=== PATIENT | male | born 1950 | race Two or more races ===

== ENCOUNTER 2024-10-09 10:42 | Inpatient (IN) | payer OTHER, MEDICAID, MEDICARE, SELFPAY ==
[2024-10-09] VITALS (10 sets, daily range): BP systolic 145–191; BP diastolic 90–126; PULSE 82–121; RESP 15–98; TEMP 36.4–36.9; O2SAT 97–99; BMI 27.4
--- NOTE | 2024-10-09 10:54 | XR_ITS ---
Examination: PA lateral chest 2 views TECHNIQUE: Upright PA lateral chest 2 views Exam date and time: October 09, 2024 1118 hours INDICATIONS: Swollen painful throat beginning 3 days ago. FINDINGS: Lobulation right hemidiaphragm Normal heart size No pneumonia or pulmonary edema IMPRESSION: No pneumonia or pulmonary edema
--- NOTE | 2024-10-09 10:54 | EKG_ITS ---
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: : [id number] Requested By: Darrian Castillo (SHIRLEY) Order Number: [id number] Reading MD: Darrian Castillo (ACCOUNT ADJUSTER) Measurements Intervals [place] Rate: 116 P: NH: QRS: 16 QRSD: 90 T: 154 QT: 312 QTc: 435 Interpretive Statements ATRIAL FLUTTER/TACHYCARDIA WITH RAPID VENTRICULAR RESPONSE ST DEVIATION AND MODERATE T-WAVE ABNORMALITY, CONSIDER LATERAL ISCHEMIA [-0.1+ mV T-WAVE IN I/aVL/V5/V6] ST DEVIATION AND MODERATE T-WAVE ABNORMALITY, CONSIDER INFERIOR ISCHEMIA [-0.1+ mV T-WAVE IN II/aVF] Compared to ECG 01/28/2022 16:18:55 Sinus bradycardia no longer present T-wave abnormality still present Possible ischemia still present /store/S0/[id number]/ecg/[id number].pdf
--- NOTE | 2024-10-09 10:56 | PD.EDRME ---
Rapid Medical Screening Exam RME Arrival date/time: 10/09/24 10:42 74-year-old male presents to the emergency department today with complaints of difficulty swallowing patient also noted to be hypertensive Chief Complaint: Dental/Oral/Throat
[2024-10-09 11:16] LABS: Basophils % (Auto) 1 % (0-2.5); Eosinophils % (Auto) 1 % (0-10); Hematocrit 33.8 % (41.0-53.0); Hemoglobin 10.7 g/dL (13.5-16.0); Immature Granulocytes % (Auto) 0 % (0-0); Immature Granulocytes Auto 0.02 Thou/mm3 (0.00-0.00); Lymphocytes # (Auto) 0.7 Thou/mm3 (1.0-4.8); Lymphocytes % (Auto) 10 % (10-50); Mean Corpuscular HGB Conc 31.7 g/dl (31.0-37.0); Mean Corpuscular Hemoglobin 23.1 pg (25.0-35.0); Mean Corpuscular Volume 73 fL (80-100); Monocytes # (Auto) 0.3 Thou/mm3 (0.0-0.8); Monocytes % (Auto) 4 % (0-12); Neutrophils # (Auto) 5.6 Thou/mm3 (1.8-7.7); Neutrophils % (Auto) 84 % (37-80); Nucleated Red Blood Cell % 0 /100 WBC (0); Platelet Count 235 Thou/mm3 (140-440); RDW Standard Deviation 41.2 fL (35.1-43.9); Red Blood Count 4.63 Miln/mm3 (4.50-5.90); White Blood Count 6.7 Thou/mm3 (3.8-10.6)
[2024-10-09 11:33] LABS: B-Type Natriuretic Peptide 157 pg/mL (0-100)
[2024-10-09 11:35] LABS: Alanine Aminotransferase 9 U/L (10-49); Albumin, Serum 4.8 gm/dL (3.4-4.8); Albumin/Globulin Ratio 1.8 (1.2-2.2); Alkaline Phosphatase 62 U/L (46-116); Anion Gap 9 (7-16); Aspartate Amino Transferase 28 U/L (0-34); BUN/Creatinine Ratio 11 Ratio (12-20); Bilirubin,Total 0.7 mg/dL (0.3-1.2); Blood Urea Nitrogen 16 mg/dL (9-23); Calcium 9.4 mg/dL (8.3-10.6); Calcium (Corrected) 9.4 mg/dL (8.5-10.1); Carbon Dioxide 23.5 mMol/L (20.0-31.0); Chloride 105 mMol/L (98-107); Creatinine (Component) 1.5 mg/dL (0.6-1.3); Globulin 2.6 gm/dL (2.3-3.5); Glucose 100 mg/dL (74-106); Osmolality,Calculated 275 (275-295); Potassium 3.8 mMol/L (3.4-5.1); Sodium 137 mMol/L (136-145); Total Protein 7.4 gm/dL (5.7-8.2); Troponin I 0.029 ng/mL (0.0-0.045); eGFR 48 See Note
[2024-10-09 11:44] LABS: INR 1.2 (0.9-1.3); Partial Thromboplastin Time 29.6 Seconds (22.0-36.0); Prothrombin Time 12.8 Seconds (9.0-12.2)
--- NOTE | 2024-10-09 13:59 | XR_ITS ---
Examination: CT chest with intravenous contrast 2-D sagittal and coronal reconstructions Exam date and time: October 09, 2024 1518 hours INDICATIONS: Difficulty swallowing 4 days CTDI:vol (mGy) 24.2 DLP: (mGycm) 984 Technique: Multiple axial sections of the thorax have been obtained. Sections have been obtained, 3 mm slice thickness. Mediastinal and lung density settings have been obtained. Intravenous contrast administered, 30 cc Isovue-300. 2-D sagittal, coronal images obtained. Low dose protocols were performed. One or more of the following dose reduction techniques were used; automated exposure control, adjustment of the mA and/or KV according to patient size, use of iterative reconstruction technique. Findings: Thoracic aorta aneurysm dilatation Pulmonary artery segments are not enlarged Moderate calcification left anterior descending coronary artery Mild enlargement left atrium left ventricle No paratracheal tracheobronchial or bronchopulmonary adenopathy No pneumonia or pulmonary edema pleural disease or pulmonary nodules Lower wall of the esophagus appears mildly thickened Cholelithiasis No visualized liver or splenic lesion No pancreatic mass Significant scarring both kidneys Moderate degenerative disc disease thoracic spine IMPRESSION: No mediastinal lymphadenopathy No pneumonia, pulmonary edema, pleural disease or pulmonary nodules Lower wall of the esophagus appears mildly thickened, consider reflux esophagitis Suggest elective standard fluoroscopically guided esophagram follow-up
--- NOTE | 2024-10-09 13:59 | XR_ITS ---
Examination: CT soft tissue neck, with intravenous contrast. 2-D coronal reconstructions. 2-D sagittal reconstructions. Date and time of exam :October 09, 2024 1518 hours INDICATIONS: Unable to swallow fluid beginning 4 days ago. CTDI: vol (mGy):14 DLP: (mGycm):388 Technique: 1.25 mm axial sections of the neck of the obtained. Coronal and sagittal reconstructions have been obtained. Intravenous contrast administered 60 30 cc Isovue-300 cc Isovue-370. Low dose protocols were performed. One or more of the following dose reduction techniques were used; automated exposure control, adjustment of the mA and/or KV according to patient size, use of iterative reconstruction technique. Findings: Symmetrical nasopharynx oropharynx Nonspecific carotid triangle submental cervical lymphadenopathy The larynx appears normal 4 mm right thyroid nodule Normal epiglottis Upper thoracic esophagus shows mild wall thickening IMPRESSION: No soft tissue neck mass The upper thoracic esophagus shows mild wall thickening Consider elective standard fluoroscopically guided esophagram follow-up
--- NOTE | 2024-10-09 14:03 | PD.EDADULT ---
ED General RME/HPI General Chief complaint: Dental/Oral/Throat Stated complaint: SWOLLEN THROAT X3 DAYS Time Seen by Provider: 10/09/24 16:13 Arrival date/time: 10/09/24 10:42 CC: Inability to swallow food and fluids HPI 4 days. Patient states insidious onset no prior history of similar events patient denies fever chills chest pain shortness of breath or difficulty breathing. Patient is a former alcoholic has a history of hypertension hyperlipidemia and is on Plavix. RME / HPI RME / HPI narrative: 10/09/24 10:42 74-year-old male presents to the emergency department today with complaints of difficulty swallowing patient also noted to be hypertensive Related Data Home Medications ?Medication ?Instructions ?Recorded ?Confirmed clopidogrel 75 mg tablet (Plavix) 75 mg PO QDAY #0 tabs 07/19/13 08/16/18 metformin 500 mg tablet 500 mg PO BIDAC #0 tabs 07/19/13 08/16/18 (Glucophage) simvastatin 40 mg tablet (Zocor) 40 mg PO HS #0 tabs 07/19/13 08/16/18 Atenolol/Chlorthalidone * 1 tab PO QAM #0 tabs 07/18/15 08/16/18 (TENORETIC 50/25 *) baclofen 10 mg tablet 1 - 2 tab PO TID #0 tabs 07/18/15 08/16/18 lisinopril 40 mg tablet 40 ml PO QDAY #0 tabs 07/18/15 08/16/18 loratadine 10 mg tablet (Claritin) 10 mg PO QDAY #0 tabs 07/18/15 08/16/18 pantoprazole 40 mg tablet,delayed 40 mg PO QDAY ##0 07/23/15 08/16/18 release (Protonix) Allergies Allergy/AdvReac Type Severity Reaction Status Date / Time No Known Allergies Allergy Verified 10/09/24 10:45 Review of Systems Review of Systems Narrative Review of Systems: GEN: No fever, no chills, no weight loss EYES: No discharge, no visual changes, no pain HEENT: No ear pain, no congestion, no sore throat PULM: No shortness of breath, no cough, no congestion CV: No chest pain, no dyspnea on exertion, no palpitations GI: No nausea, no vomiting, no diarrhea, no pain, no constipation : No frequency, no urgency, no dysuria MUSC/SKEL: No joint pain, no back pain SKIN: No rash PSYCH: No hallucinations, no depression HEME/LYMPH: No easy bleeding or bruising tendencies NEURO: No weakness, no headache Past Medical History Past Medical History CARDIAC: Positive Myocardial Infarction, Hypercholesterolemia and Hypertension; Negative Congestive Heart Failure RESPIRATORY: Negative Chronic Obstructive Pulmonary Disease (COPD) GENITOURINARY: Negative Renal Disease ENDOCRINE: Positive Diabetes Mellitus Type 2; Negative Diabetes Mellitus Type 1 OTHER HISTORY: Negative Blood Transfusions Surgical History SURGICAL: Positive Coronary Stent Social History SMOKING STATUS: Never smoker ED Exam Narrative Physical exam: [General: In mild discomfort but not in any acute distress Head normocephalic HEENT: Eyes pupils are PERRLA EOMs are intact mouth pink dry membranes uvula is midline swallow symmetrical phonation is normal. Patient is observed unable to swallow his own saliva. All other subsystems of HEENT are within acceptable limits Neck is supple nontender Chest equal chest rise nontender to palpation Respiratory: Clear to auscultation no wheezes crackles or rubs CV: Rate rhythm is regular no murmurs rubs or clicks Abdomen is flat, soft nontender no masses positive bowel sounds all 4 quadrants Back: No CVA tenderness no spinous process tenderness from cervical spine thoracic and lumbar spine Skin: Intact no petechiae rash induration ulceration or crepitus Extremities: Moving all extremity against resistance cap refill less than 2 seconds neurosensory intact Neuro: Awake alert oriented x3 Glascow coma 15 no focal deficits] Course Course Course Narrative: CT neck and chest show that there is esophageal wall thickening in the distal portion but no masses no lymphadenopathy no other acute finding as interpreted by me read by radiology on both CTs. Patient's case discussed with Dr. Rahman, who agrees to consult on this patient for endoscopy tomorrow. Patient is in agreement with this plan. Patient's case discussed with the resident for Dr. Khoury, who agrees to accept the patient for admission. Quality Measures none Orders Category Date Time Status CT Screening NOW Care 10/09/24 14:00 Active EKG (ED ONLY) *Do not use* NOW Care 10/09/24 10:54 Completed Saline [Insert IV] NOW Care 10/09/24 13:59 Active Consult to Gastroenterology Stat Cons 10/09/24 16:[address] chest w con Stat Exams 10/09/24 13:[address] soft tissue neck w con Stat Exams 10/09/24 13:59 Completed EKG (ED Only) Stat Exams 10/09/24 10:54 Draft XR chest 2V Stat Exams 10/09/24 10:54 Completed B-Type Natriuretic Peptide Stat Lab 10/09/24 11:02 Completed CBC Stat Lab 10/09/24 11:02 Completed Comprehensive Metabolic Panel Stat Lab 10/09/24 11:02 Completed Partial Thromboplastin Time Stat Lab 10/09/24 11:02 Completed Prothrombin Time with INR Stat Lab 10/09/24 11:02 Completed Troponin I Stat Lab 10/09/24 11:02 Completed Sodium Chloride 0.9% 1000 ml [Ns] 1,000 ml Med 10/09/24 13:59 Active IV 125 mls/hr cloNIDine HCL [Catapres] Med 10/09/24 10:55 Discontinued 0.2 mg PO X1 ONE hydrALAZINE INJ [Apresoline Inj] Med 10/09/24 14:01 Discontinued 20 mg IV X1 ONE Vital Signs Vital signs: Vital Signs Temperature 98.4 F 10/09/24 10:52 Pulse Rate 118 H 10/09/24 10:52 Respiratory Rate 18 10/09/24 10:52 Blood Pressure 191/126 H 10/09/24 10:52 Pulse Oximetry (%) 97 10/09/24 10:52 Oxygen Delivery Method Room Air 10/09/24 10:52 Discharge Plan Plan Patient Disposition: Other Care w/in Hosp ([facility]) Prescriptions/Referrals Prescriptions/Med Rec: No Action metformin [Glucophage] 500 MG tablet 500 mg PO BIDAC Qty: 0 clopidogrel [Plavix] 75 MG tablet 75 mg PO QDAY Qty: 0 simvastatin [Zocor] 40 MG tablet 40 mg PO HS Qty: 0 Atenolol/Chlorthalidone * (TENORETIC 50/25 *) 1 TAB tablet 1 tab PO QAM Qty: 0 baclofen 10 MG tablet 1 - 2 tab PO TID Qty: 0 lisinopril 40 MG tablet 40 ml PO QDAY Qty: 0 loratadine [Claritin] 10 MG tablet 10 mg PO QDAY Qty: 0 pantoprazole [Protonix] 40 MG tablet,delayed release (DR/EC) 40 mg PO QDAY Qty: 0 Patient Comments: TO SUPPRESS GASTRIC SECRETIONS Referrals: Darrian Cortez PA-C [Primary Care Provider] - In 1 week Problem List Clinical Impression: Esophageal obstruction, Hypertension Patient/Caregiver Discharge Instructions Print Language: Kenyan Stand Alone Forms: Kenisha Award Info., Patient Portal Info Letter PA/POLITICAL RESEARCH SCIENTIST Supervising Physician PA/SANTIAGO Supervising Physician: Rafal Cooper ENP MDM EKG Interpretation EKG #1: EKG Interpretation: EKG performed at 1109 shows a ventricular rate of 116 QRS of 90 QTc of 381 this is a flutter. Labs Lab(s) Interpretation(s): CBC shows no leukocytosis patient has a mild anemia hemoglobin of 10.7 and a crit of 33.8 this is an improvement when compared with other laboratory values. Platelets of 235 Coags show PT of 12.8 INR PTT within acceptable limits CMP shows a BUN of 16 creatinine 1.5 no other electrolyte imbalances. No transaminitis or T. bili elevation Troponin at 0.029 BNP at 157 Imaging Imaging Interpretation(s): CT chest and neck show the patient has distal esophageal wall thickening, there is no mediastinal masses or masses around esophagus. This is interpreted by me read by radiology. Medication Administration(s) Medication Administration History Sodium Chloride (Ns) 1,000 mls @ 125 mls/hr IV .Q8H SHAYNA Stop: 11/08/24 13:58 Last Admin: 10/09/24 14:22 Dose: 125 mls/hr Documented By: TRINIDAD Discontinued Medications Clonidine (Clonidine Hcl 0.1 Mg Tablet) 0.2 mg PO X1 ONE Stop: 10/09/24 10:56 Last Admin: 10/09/24 11:06 Dose: Not Given Documented By: DO Non-Admin Reason: Other, see note Comments: pt unable to swallow Hydralazine HCl (Hydralazine Inj 20 Mg/Ml Vial) 20 mg IV X1 ONE Stop: 10/09/24 14:02 Last Admin: 10/09/24 14:22 Dose: 20 mg Documented By: TRINIDAD
[2024-10-09] MEDS: hydrALAZINE INJ 20 MG/ML VIAL IV (14:22)
[2024-10-09] MEDS: SODIUM CHLORIDE 0.9% 1000 ML 1,000 ML 125 ML IV (14:22)
--- NOTE | 2024-10-09 17:29 | PD.RESHP ---
Documentation for date of: 10/09/24 HPI History of Present Illness Chief complaint: Dysphagia History of present illness: HPI: Patient is Nepalese-speaking and history facilitated by registered healthcare movie producer. His daughter was present at bedside Patient is a 74-year-old male with past medical history significant for primary hypertension, previous [place], CAD s/p 1 stent 15 years ago, [id number] diabetes mellitus type 2, GERD and esophageal ulcers presented today with a history of progressively worsening dysphagia. Follows up with his PCP and executive secretary social welfare Dr. Luis Murphy. Patient stated that for the past 4 days he has experienced dysphagia and odynophagia. Initially his dysphagia was to solids but this progressively worsened to include liquids. For the past 24 hours patient has not been able to swallow anything at all. He also endorses regurgitation of food after trying to swallow it. It is also painful for him to swallow saliva. He was unable to swallow his medication for the past 2 days. Denies any fever, abdominal pain, nausea, headache, blurry vision, presyncope/syncope, chest pain/palpitations, diarrhea, dysuria, recent travel and sick contacts. Of note according to patient's daughter, for the past 7 months he has had difficulty swallowing. There were instances when he was swallow food and it would get stuck and he would have to cough it out. In 2023 patient had 2 EGDs done, one in [place] and one in [place]. The results of these were not seen, but reported by the patient that he had esophageal ulcers and GERD. Incidentally the patient's mother after choking on a piece of food. ED course: BP 191/127, pulse 118, temp 98.4 F, SpO2 97% on room air. Lab significant for Hb 10.7, BUN 16, CR 1.5, BNP 157, K 3.8. CT chest significant for lower wall of esophagus mildly thickened. CT soft tissue neck significant for 4 mm right thyroid nodule In the ED patient received Hydralazine 20 Mg IV x 1. Patient will be admitted for workup and management of dysphagia for investigation and hypertensive urgency. GI, Dr. Rahman consulted and closely following the case. Review of Systems Review of Systems Narrative Review of Systems: GENERAL: Denies fever/chills or diaphoresis. HEENT: Denies headaches or visual changes. Denies discharge. Neuro: Denies unusual weakness or difficulty speaking. CARDIO: Denies chest pain or palpitations. PULM: Denies SOB, coughing or wheezing. GI: As above. URO: Denies burning/itching/pain/urinary changes. MSK/EXT/SKIN: Denies joint/skeletal/muscle pain, issues/changes in upper or lower extremities, itchiness, or superficial pain. PSYCH: Cooperative, pleasant mood & affect. The rest of the review of systems is otherwise negative. Past Medical History Past Medical History Comments PMH COMMENT: Past medical history: [place] Primary hypertension GERD Esophageal ulcers CAD s/p stent [address] [facility] Ynx-jowdqag-gwelswjbe diabetes mellitus type 2 Medication list: Glipizide 5 Mg p.o. daily Plavix 75 Mg p.o. daily Simvastatin 40 Mg p.o. at bedtime Lisinopril 20 Mg p.o. daily Past surgical history: Right inguinal hernia repair Allergies: NKFDA Social history: Occupational History: Retired. 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 Has 3 daughters Tobacco use: 3-4 cigarettes/day. Approximately 1 pack care ETHO use: Previously a heavy drinker. Will drink hard liquor and beers daily. Quit 2-3 years ago Illicit drug use: Denies Social History Note: Lives alone. Carries out all ADLs independently. Walks 20 minutes/day and very active with gardening on Family History: Familial hypertriglyceridemia Diabetes Hypertension Swallowing disorder?mother His brother suddenly in his sleep Exam Vital Signs Temp Pulse Resp BP Pulse Ox O2 Del Method 97.6 F 82 20 149/92 H 99 Room Air 10/09/24 13:50 10/09/24 14:45 10/09/24 14:45 10/09/24 14:45 10/09/24 14:45 10/09/24 14:45 Narrative Exam Constitutional Alert, oriented x 3 and comfortable. Elderly male HEENT Vision grossly intact. Patent nares. Trachea midline Respiratory Chest normal on inspection and clear auscultation bilaterally Cardiovascular S1 and S2 audible, RRR. No murmurs carotid bruit. No gross JVD. Abdominal Soft and non tender to palpation in all quadrants. BS + Genitourinary No bladder tenderness, no flank pain. Normal to palpation Musculoskeletal Extremities tone within normal limits. No LE edema. Neurological CN II - XII grossly intact. Extremity motor and sensation grossly intact. Skin Warm, dry and intact. No apparent lesions. Psychiatric Patient has good affect, is cooperative Results: Labs 10/10/24 04:50 10/10/24 04:50 Labs: Short CBC 10/09/24 Range/Units 11:02 WBC 6.7 (3.8-10.6) Thou/mm3 Hgb 10.7 L (13.5-16.0) g/dL Hct 33.8 L (41.0-53.0) % Plt Count 235 (140-440) Thou/mm3 BMP 10/09/24 11:02 Sodium 137 Potassium 3.8 Chloride 105 Carbon Dioxide 23.5 BUN 16 Creatinine 1.5 H Glucose 100 Calcium 9.4 Cardiac Enzymes 10/09/24 Range/Units 11:02 Troponin I 0.029 (0.0-0.045) ng/mL Liver Function 10/09/24 Range/Units 11:02 Total Bilirubin 0.7 (0.3-1.2) mg/dL AST 28 (0-34) U/L ALT 9 L (10-49) U/L Alkaline Phosphatase 62 (46-116) U/L Albumin 4.8 (3.4-4.8) gm/dL Quality Measures Quality Measures none Advance care planning discussed with:: patient Medications Home Medications and Allergies Home Medications ?Medication ?Instructions ?Recorded ?Confirmed ?Type clopidogrel 75 mg tablet (Plavix) 75 mg PO QDAY #0 tabs 07/19/13 10/10/24 History metformin 500 mg tablet 500 mg PO BIDAC #0 tabs 07/19/13 08/16/18 History (Glucophage) simvastatin 40 mg tablet (Zocor) 40 mg PO HS #0 tabs 07/19/13 10/10/24 History Atenolol/Chlorthalidone * 1 tab PO QAM #0 tabs 07/18/15 08/16/18 History (TENORETIC *) baclofen 10 mg tablet 1 - 2 tab PO TID #0 tabs 07/18/15 08/16/18 History lisinopril 40 mg tablet 40 ml PO QDAY #0 tabs 07/18/15 08/16/18 History loratadine 10 mg tablet (Claritin) 10 mg PO QDAY #0 tabs 07/18/15 08/16/18 History pantoprazole 40 mg tablet,delayed 40 mg PO QDAY ##0 07/23/15 08/16/18 History release (Protonix) glipizide 5 mg tablet 5 mg PO BID 10/10/24 10/10/24 History lisinopril 20 mg tablet 20 mg PO QDAY 10/10/24 10/10/24 History Allergies Allergy/AdvReac Type Severity Reaction Status Date / Time No Known Allergies Allergy Verified 10/09/24 10:45 Visit Medications Sodium Chloride (Ns) 1,000 mls @ 125 mls/hr IV .Q8H SHAYNA Stop: 11/08/24 13:58 Last Admin: 10/09/24 14:22 Dose: 125 mls/hr Discontinued Medications Clonidine (Clonidine Hcl 0.1 Mg Tablet) 0.2 mg PO X1 ONE Stop: 10/09/24 10:56 Last Admin: 10/09/24 11:06 Dose: Not Given Hydralazine HCl (Hydralazine Inj 20 Mg/Ml Vial) 20 mg IV X1 ONE Stop: 10/09/24 14:02 Last Admin: 10/09/24 14:22 Dose: 20 mg Assessment & Plan Plan Patient is Nepalese-speaking and history facilitated by registered healthcare movie producer. His daughter was present at bedside Patient is a 74-year-old male with past medical history significant for primary hypertension, previous [place], CAD s/p 1 stent 15 years ago, [id number]-[id number] diabetes mellitus type 2, GERD and esophageal ulcers presented today with a history of progressively worsening dysphagia. Follows up with his PCP and executive secretary social welfare Dr. Luis Murphy. Patient will be admitted for workup and management of dysphagia for investigation and hypertensive urgency. Hypertensive urgency Primary hypertension On admission BP 191/127. Denies any headaches, visual changes, syncope or presyncope. In the ED patient received hydralazine 20 Mg IV x 1 after BP to 145/90. Plan: ? HbA1c, lipid panel, TSH ? Aim to lower blood pressure by 25% within first 24 hours ? Labetalol 5 Mg IV every 10 minutes for greater than 180 Dysphagia Odynophagia Esophageal ulcers GERD DDx: Esophageal stricture, achalasia, esophageal spasm, scleroderma, esophageal webs, Lorena-Ksihor syndrome Patient has a history of progressively worsening dysphagia over the past few months. Acutely worsened over the past 4 days. He has had multiple endoscopies last year which were positive for esophageal ulcers and GERD. CT chest significant for lower wall of esophagus mildly thickened. CT soft tissue neck significant for 4 mm right thyroid nodule Plan: ? Clear liquid diet ? ESR, CRP ? N.p.o. from midnight ? Benzocaine spray for odynophagia as needed ? Pantoprazole 40 Mg IV twice daily ? GI, Dr. Rahman consulted. Appreciate recommendations Atrial flutter Patient denies any chest pain/pressure or palpitations EKG on admission significant for atrial flutter, rate 116. No acute ST changes. T wave inversion in lateral leads Previous EKG showed no signs of a.flutter [id number] 5 points; 7.2% stroke risk per year. [Age, male, HTN, [place], DM] Plan: ? Maintain K greater than 4 and magnesium greater than 2 at all times to prevent any further arrhythmias. ? To consider rate control if sustains over 100 ? To discuss with patient risks versus benefits of anticoagulation prior to discharge Acute kidney injury, prerenal versus renal DDx: Dehydration, medication side effect, ATN On admission patient's CR 1.5. From chart review baseline CR between 1.1?1.2. Plan: ? Gentle IV hydration with normal saline IVF at 80 cc/h Microcytic anemia On admission Hb 10.7 DDx:, Thalassemia, anemia of chronic disease, sideroblastic anemia aortic stenosis, lead poisoning, nutritional deficiency Plan: ? Iron panel ordered ? B12, folate, LDH, reticulocyte count ordered Thyroid nodule 4 mm incidentally found on CT soft tissue neck Plan: ? TSH and free T4 ordered ? For outpatient follow-up Health maintenance: Disposition: Pending EGD. IV fluids. Diet: Clear liquid. N.p.o. from midnight Lines: pIVs GI Prophylaxis: Pantoprazole 40 Mg IV twice daily Thrombo Prophylaxis: Heparin Code status: FULL CODE Plan of care discussed with Attending Dr. Iraida Kelley MD PGY 1 Disclaimer: This note was dictated by speech recognition. Minor errors in tile picker may be present due to voice recognition software. Attending Provider Attestation/Addendum I attest that I was physically present for the evaluation, physical examination, lab and imaging review of the patient with the residents. I discussed the case with the residents and agree with the findings and plans of care as documented above. Patient is 74 years old male with past medical history of hypertension, CAD status post stent, diabetes, GERD and esophageal ulcers who presented to the ED with complaint of worsening dysphagia. Patient has been having dysphagia for last 7 months, underwent EGDs but is unsure of the results. But for the last 4 days, his dysphagia has worsened significantly along with odynophagia. His dysphagia was initiated to solids but has progressed to liquids and has not been able to swallow anything at all. In the ED, his blood pressure was 191/127, pulse 118. Rest of the vitals were within normal limits. Lab results show hemoglobin of 10.7, creatinine 1.5. CT chest was obtained which showed lower wall of esophagus mildly thickened, CT soft tissue neck showed 4 mm right thyroid nodule. We will admit the patient for management of dysphagia, odynophagia and hypertensive urgency. We will keep him n.p.o. after midnight and obtain GI consult. Benzocaine spray and analgesics for pain control. Labetalol as needed for hypertensive urgency. Patient also noted to have atrial flutter, heart rate is controlled at bedside. Patient has [id number] score of 5. Will discuss with the patient regarding starting of anticoagulation after GI procedures. Patient also has DIANA likely secondary to decreased oral intake, we will start him on gentle IV hydration. We will obtain iron panel, B12, folate for evaluation of his anemia. TSH and T4 level ordered. Kt Khoury MD
[2024-10-09] MEDS: SODIUM CHLORIDE 0.9% 1000 ML 1,000 ML 80 ML IV (18:48)
[2024-10-09] MEDS: POTASSIUM CHL 10 mEq IVPB 10 MEQ/100 ML BAG 100 MEQ IV ×2 (18:49→21:32)
[2024-10-09] MEDS: Magnesium Sulfate 2 GM Ivpb 2 GM/50 ML BAG IV (18:50)
[2024-10-09] MEDS: BENZOCAINE 20% (Hurricaine) SPRAY 1 DOSE TOP (19:02)
--- NOTE | 2024-10-09 20:38 | PD.IMCONS ---
HPI Data of Consult Requesting Physician: Kt Khoury MD Primary Care Provider: Darrian Cortez PA-C Consult Narrative Reason for consult: Dysphagia History of present illness: 74-year-old male evaluated by me at the request of the ER team for progressive dysphagia cc:: cc: Kt Khoury MD Review of Systems Review of Systems Systems Reviewed: All systems reviewed, normal except as documented Past Medical History Surgical History OTHER SURGICAL HX: Diabetes mellitus Essential hypertension Hyperlipidemia On clopidogrel Meds Home Medications and Allergies Home Medications ?Medication ?Instructions ?Recorded ?Confirmed ?Type clopidogrel 75 mg tablet (Plavix) 75 mg PO QDAY #0 tabs 07/19/13 10/10/24 History metformin 500 mg tablet 500 mg PO BIDAC #0 tabs 07/19/13 08/16/18 History (Glucophage) simvastatin 40 mg tablet (Zocor) 40 mg PO HS #0 tabs 07/19/13 10/10/24 History Atenolol/Chlorthalidone * 1 tab PO QAM #0 tabs 07/18/15 08/16/18 History (TENORETIC 50/ *) baclofen 10 mg tablet 1 - 2 tab PO TID #0 tabs 07/18/15 08/16/18 History lisinopril 40 mg tablet 40 ml PO QDAY #0 tabs 07/18/15 08/16/18 History loratadine 10 mg tablet (Claritin) 10 mg PO QDAY #0 tabs 07/18/15 08/16/18 History pantoprazole 40 mg tablet,delayed 40 mg PO QDAY ##0 07/23/15 08/16/18 History release (Protonix) glipizide 5 mg tablet 5 mg PO BID 10/10/24 10/10/24 History lisinopril 20 mg tablet 20 mg PO QDAY 10/10/24 10/10/24 History Allergies Allergy/AdvReac Type Severity Reaction Status Date / Time No Known Allergies Allergy Verified 10/09/24 10:45 Exam Vital Signs Temp Pulse Resp BP Pulse Ox O2 Del Method 97.6 F 98 16 171/102 H 99 Room Air 10/09/24 20:06 10/09/24 20:06 10/09/24 20:06 10/09/24 20:06 10/09/24 20:10/09/24 20:06 Constitutional Comments: Alert oriented Routine Respiratory Exam Comments: Normal to auscultation Routine Abdominal Exam Comments: Soft nontender Results Labs 10/10/24 04:50 10/10/24 04:50 Labs: Short CBC 10/09/24 Range/Units 11:02 WBC 6.7 (3.8-10.6) Thou/mm3 Hgb 10.7 L (13.5-16.0) g/dL Hct 33.8 L (41.0-53.0) % Plt Count 235 (140-440) Thou/mm3 BMP 10/09/24 11:02 Sodium 137 Potassium 3.8 Chloride 105 Carbon Dioxide 23.5 BUN 16 Creatinine 1.5 H Glucose 100 Calcium 9.4 Cardiac Enzymes 10/09/24 Range/Units 11:02 Troponin I 0.029 (0.0-0.045) ng/mL Liver Function 10/09/24 Range/Units 11:02 Total Bilirubin 0.7 (0.3-1.2) mg/dL AST 28 (0-34) U/L ALT 9 L (10-49) U/L Alkaline Phosphatase 62 (46-116) U/L Albumin 4.8 (3.4-4.8) gm/dL Assessment and Plan Additional Assessment & Plan Additional Plan: Progressive dysphagia Plan informed consent obtained for fiberoptic esophagogastroduodenoscopy with possible biopsy possible therapeutic intervention under intravenous moderate sedation N.p.o. midnight tonight Other medical problems include 1 essential hypertension 2 hyperlipidemia 3 diabetes mellitus type 2 Thank you very much for the opportunity to participate in care of this patient
[2024-10-09] MEDS: HEPARIN SOD INJ 5000 UNIT/ML VIAL SC (21:32)
[2024-10-09] MEDS: PANTOPRAZOLE INJ 40 MG VIAL IVP (21:32)
[2024-10-09] MEDS: MORPHINE SULF INJ 10 MG/ML VIAL 2 MG IVP (21:49)
[2024-10-10] VITALS (20 sets, daily range): BP systolic 129–208; BP diastolic 78–136; PULSE 78–131; RESP 14–98; TEMP 36.1–36.8; O2SAT 95–99
[2024-10-10] MEDS: SODIUM CHLORIDE 0.9% 1000 ML 1,000 ML 80 ML IV ×2 (06:01→21:07)
[2024-10-10 06:26] LABS: Basophils % (Auto) 0 % (0-2.5); Eosinophils % (Auto) 0 % (0-10); Hematocrit 34.8 % (41.0-53.0); Hemoglobin 10.7 g/dL (13.5-16.0); Immature Granulocytes % (Auto) 0 % (0-0); Immature Granulocytes Auto 0.02 Thou/mm3 (0.00-0.00); Immature Reticulocyte Fraction 27.3 % (2.3-13.4); Lymphocytes # (Auto) 0.7 Thou/mm3 (1.0-4.8); Lymphocytes % (Auto) 8 % (10-50); Mean Corpuscular HGB Conc 30.7 g/dl (31.0-37.0); Mean Corpuscular Hemoglobin 23.2 pg (25.0-35.0); Mean Corpuscular Volume 75 fL (80-100); Monocytes # (Auto) 0.4 Thou/mm3 (0.0-0.8); Monocytes % (Auto) 4 % (0-12); Neutrophils # (Auto) 7.9 Thou/mm3 (1.8-7.7); Neutrophils % (Auto) 87 % (37-80); Nucleated Red Blood Cell % 0 /100 WBC (0); Platelet Count 238 Thou/mm3 (140-440); RDW Standard Deviation 42.1 fL (35.1-43.9); Red Blood Count 4.62 Miln/mm3 (4.50-5.90); Reticulocyte % (Auto) 1.9 % (0.5-1.5); Reticulocyte Absolute Auto 87.3 Biln/L (25.0-75.0); Reticulocyte Hgb Content 25.4 pg (28.0-35.0); White Blood Count 9.1 Thou/mm3 (3.8-10.6)
[2024-10-10 07:23] LABS: Folate 22.77 ng/mL (>5.38); Vitamin B12 284 pg/mL (211-911)
[2024-10-10 07:26] LABS: Glucose Estimated Average 126 mg/dL (80-131)
[2024-10-10 07:31] LABS: Ferritin 11 ng/mL (10.5-307.3); Iron 30 mcg/dL (65-175); Percent Iron Saturation 8 % (20-55); Total Iron Binding Capacity 358 mcg/dL (250-425); Unsaturated Iron Binding 328 (225-295)
[2024-10-10 07:41] LABS: Alanine Aminotransferase 9 U/L (10-49); Albumin, Serum 4.4 gm/dL (3.4-4.8); Albumin/Globulin Ratio 1.8 (1.2-2.2); Alkaline Phosphatase 62 U/L (46-116); Anion Gap 13 (7-16); Aspartate Amino Transferase 27 U/L (0-34); BUN/Creatinine Ratio 14 Ratio (12-20); Bilirubin,Total 0.6 mg/dL (0.3-1.2); Blood Urea Nitrogen 19 mg/dL (9-23); C-Reactive Protein 0.6 mg/dL (0.0-0.9); Calcium 8.7 mg/dL (8.3-10.6); Calcium (Corrected) 8.7 mg/dL (8.5-10.1); Carbon Dioxide 18.8 mMol/L (20.0-31.0); Cardiac Risk Estimate 3.6 RATIO (4.0-6.7); Chloride 109 mMol/L (98-107); Cholesterol 169 mg/dL (132-200); Creatinine (Component) 1.4 mg/dL (0.6-1.3); Estimated Creatinine Clearance 40.5 mL/min (>60); Free T4 (Free Thyroxine) 1.21 ng/dL (0.89-1.76); Globulin 2.5 gm/dL (2.3-3.5); Glucose 72 mg/dL (74-106); HDL Cholesterol 47 mg/dL (40-60); LDH (Lactate Dehydrogenase) 199 U/L (120-246); LDL Cholesterol,Calculated 94 mg/dL (0-130); Magnesium 2.1 mg/dL (1.6-2.6); Osmolality,Calculated 282 (275-295); Phosphorous 3.1 mg/dL (2.4-5.1); Potassium 4.3 mMol/L (3.4-5.1); Sodium 141 mMol/L (136-145); Thyroid Stimulating Hormone 1.79 uIU/mL (0.55-4.78); Total Protein 6.9 gm/dL (5.7-8.2); Triglycerides 139 mg/dL (30-150); eGFR 52 See Note
[2024-10-10] MEDS: PANTOPRAZOLE INJ 40 MG VIAL IVP ×2 (09:14→21:25)
--- NOTE | 2024-10-10 09:25 | CHAP ---
Prayed with patient and family about upcoming procedure.
[2024-10-10 10:04] LABS: Sed Rate (ESR) 47 mm/hr (0-20)
--- NOTE | 2024-10-10 10:43 | PC.NURSE ---
Pt. requesting benzocaine for throat pain, Dr. Kelley orders no because pt. can only have one time a day and will have before procedure. Pt. aware and agrees.
[2024-10-10] MEDS: LABETALOL INJ 5 MG/ML VIAL 20 ML IVP (12:28)
--- NOTE | 2024-10-10 13:22 | PC.SS ---
Initial assessment: this is 74 year old male who lives at home alone. Patient is Slovak speaking. Patient is independent with ADL's. Patient denies DME use. PCP is Darrian Cortez. [facility]. Discharge plan is to return home. Family is able to transport the patient home. Patient's family is requesting home health services, no preferred agency. D/c home: home health Next of kin: Meagan ledesma
--- NOTE | 2024-10-10 14:43 | PC.SS ---
Rounding note: planned EGD today.
--- NOTE | 2024-10-10 16:29 | ESPR_ITS ---
<Statement entered by Ulises Larsen MD - 10/10/24 18:40> Patient was seen and examined at bedside, reported that he still has some moderate confusion. Blood pressure 143/93 report for him labetalol as needed with parameters of 160 systolic blood pressure to be given 5 mg of IV labetalol. X 3 if does not improve call MD. Patient is scheduled for EGD today by Dr. Rahman. Was still waiting for the medical records for his previous EGDs. - Patient's plan and care discussed with my attending, Dr. Ignacio Larsen MD Internal Medicine PGY-2 Documentation for date of: 10/10/24 Subjective Subjective Interval history: Patient is Guyanese-speaking and interaction facilitated by registered healthcare caul puller. Patient was seen and examined at bedside this AM. No acute exents overnight. Adequate urine output and mentation is at baseline. Patient still complains of odynophagia. Denies any vomiting, nausea or fever. FE 30, TIBC 358, ferritin 11. LDH 199, B12, folate within normal limits. Reticulocyte count 1.9. ESR 47, CRP 0.6. Patient scheduled for EGD tonight Exam Vital Signs Temp Pulse Resp BP Pulse Ox O2 Del Method 97.0 F 103 H 16 154/78 H 95 Room Air 10/10/24 12:00 10/10/24 12:28 10/10/24 12:00 10/10/24 13:08 10/10/24 12:00 10/10/24 12:00 Narrative Exam Constitutional Alert, oriented x 3 and comfortable. Elderly male HEENT Vision grossly intact. Patent nares. Trachea midline. Thyroid nodule palpated on the right Respiratory Chest normal on inspection and clear auscultation bilaterally Cardiovascular S1 and S2 audible, RRR. No murmurs carotid bruit. No gross JVD. Abdominal Soft and non tender to palpation in all quadrants. BS + Genitourinary No bladder tenderness, no flank pain. Normal to palpation Musculoskeletal Extremities tone within normal limits. No LE edema. Neurological CN II - XII grossly intact. Extremity motor and sensation grossly intact. Skin Warm, dry and intact. No apparent lesions. Psychiatric Patient has good affect, is cooperative Objective Labs 10/11/24 05:06 10/11/24 05:06 Labs: Laboratory Results - last 24 hr 10/10/24 04:50 WBC 9.1 RBC 4.62 Hgb 10.7 L Hct 34.8 L MCV 75 L MCH 23.2 L MCHC 30.7 L RDW Std Deviation 42.1 Plt Count 238 Neut % (Auto) 87 H Lymph % (Auto) 8 L [place] % (Auto) 4 Eos % (Auto) 0 Baso % (Auto) 0 Neut # (Auto) 7.9 H Lymph # (Auto) 0.7 L [place] # (Auto) 0.4 Eos # (Auto) 0.0 Baso # (Auto) 0.0 Immature Gran # (Auto) 0.02 H Absolute Nucleated RBC 0.00 Immature Gran % 0 Nucleated RBC % 0 ESR 47 H Retic Count (auto) 1.9 H Absolute Retic 87.3 H Immature Retic Fraction 27.3 H Retic Hgb Content CHr 25.4 L Sodium 141 Potassium 4.3 D Chloride 109 H Carbon Dioxide 18.8 L Anion Gap 13 BUN 19 Creatinine 1.4 H Estim Creat Clear Calc 40.5 L eGFR 52 L BUN/Creatinine Ratio [address] Glu mg/dL 126 Hemoglobin A1c 6.0 Calculated Osmolality 282 Calcium 8.7 Corrected Calcium 8.7 Phosphorus 3.1 Magnesium 2.1 Iron 30 L TIBC 358 Iron Saturation 8 L Unsat Iron Binding 328 H Ferritin 11 Total Bilirubin 0.6 AST 27 ALT 9 L Alkaline Phosphatase 62 Lactate Dehydrogenase 199 C-Reactive Prot, Quant 0.6 Total Protein 6.9 Albumin 4.4 Globulin 2.5 Albumin/Globulin Ratio 1.8 Triglycerides 139 Cholesterol 169 LDL Cholesterol, Calc 94 HDL Cholesterol 47 Cholesterol/HDL Ratio 3.6 L Vitamin B12 284 Folate 22.77 TSH 1.79 Free T4 1.21 Quality Measures Quality Measures none Advance care planning discussed with:: patient Assessment & Plan Assessment Current Active Medications: Generic Name Dose Route Start Last Admin Trade Name Freq PRN Reason Stop Dose Admin Acetaminophen 650 mg 10/09/24 17:32 Acetaminophen Supp 650 Mg Supp HI 11/08/24 17:31 Q6HR PRN Fever > 100.3 or pain 1-3 Albuterol/Ipratropium 3 ml 10/09/24 17:32 Albuterol/Ipratropium (Duoneb) Rt Anu 3 Ml Nebu INH 11/08/24 17:31 Q4HR PRN SHORTNESS OF BREATH OR WHEEZE Heparin Sodium (Porcine) 5,000 unit 10/09/24 21:00 10/10/24 09:16 Heparin Sod Inj 5000 Unit/Ml Vial SC 10/23/24 20:59 Not Given BID SHAYNA Sodium Chloride 1,000 mls @ 80 mls/hr 10/09/24 17:45 10/10/24 06:01 Ns IV 11/08/24 17:44 80 mls/hr .[id number] SHAYNA Administration Labetalol HCl 5 mg 10/10/24 11:57 10/10/24 12:28 Labetalol Inj 5 Mg/Ml Vial 20 Ml IVP 11/08/24 18:44 5 mg Q10MIN PRN Administration SBP >170 Morphine Sulfate 2 mg 10/09/24 17:32 10/09/24 21:49 Morphine Sulf Inj 10 Mg/Ml Vial IVP 10/14/24 17:31 2 mg Q4H PRN Administration PAIN SCALE 7-10 (Severe Ondansetron HCl 4 mg 10/09/24 17:32 Ondansetron Inj 2 Mg/Ml Inj 2 Ml IV 11/08/24 17:31 Q6H PRN NAUSEA OR VOMITING Protocol Pantoprazole Sodium 40 mg 10/09/24 21:00 10/10/24 09:14 Pantoprazole Inj 40 Mg Vial IVP 11/08/24 20:59 40 mg BID SHAYNA Administration Plan Patient is Guyanese-speaking and history facilitated by registered healthcare caul puller. His daughter was present at bedside Patient is a 74-year-old male with past medical history significant for primary hypertension, previous VT, CAD s/p 1 stent 15 years ago, fub-szxnszm-kiyzylyyc diabetes mellitus type 2, GERD and esophageal ulcers presented today with a history of progressively worsening dysphagia. Follows up with his PCP and ep specialist Dr. Luis Murphy. Patient will be admitted for workup and management of dysphagia for investigation and hypertensive urgency. Hypertensive urgency?resolved Primary hypertension Prediabetic [6%] On admission BP 191/127. Denies any headaches, visual changes, syncope or presyncope. In the ED patient received hydralazine 20 Mg IV x 1 after BP to 145/90. Plan: ? Blood pressure lowered by 25% within first 24 hours ? Labetalol 5 Mg IV every 10 minutes for greater than 180 Dysphagia Odynophagia Esophageal ulcers GERD DDx: Esophageal stricture, achalasia, esophageal spasm, scleroderma, esophageal webs, [place]-Kishor syndrome Patient has a history of progressively worsening dysphagia over the past few months. Acutely worsened over the past 4 days. He has had multiple endoscopies last year which were positive for esophageal ulcers and GERD. CT chest significant for lower wall of esophagus mildly thickened. CT soft tissue neck significant for 4 mm right thyroid nodule CRP 0.6, ESR 47 Plan: ? N.p.o. ? Benzocaine spray for odynophagia as needed ? Pantoprazole 40 Mg IV twice daily ? For EGD tonight ? GI, Dr. Rahman consulted. Appreciate recommendations Atrial flutter?persistent Patient denies any chest pain/pressure or palpitations EKG on admission significant for atrial flutter, rate 116. No acute ST changes. T wave inversion in lateral leads Previous EKG showed no signs of a.flutter [id number] 5 points; 7.2% stroke risk per year. [Age, male, HTN, VT, DM] Plan: ? Maintain K greater than 4 and magnesium greater than 2 at all times to prevent any further arrhythmias. ? To consider rate control if sustains over 100 ? To discuss with patient risks versus benefits of anticoagulation prior to discharge Acute kidney injury, prerenal versus renal?resolving DDx: Dehydration, medication side effect, ATN On admission patient's CR 1.5. From chart review baseline CR between 1.1?1.2. Today CR 1.4 Plan: ? Continue gentle IV hydration with normal saline IVF at 80 cc/h Microcytic anemia Iron deficiency anemia On admission Hb 10.7 DDx:, Thalassemia, anemia of chronic disease, sideroblastic anemia aortic stenosis, lead poisoning, nutritional deficiency FE 30, TIBC 358, ferritin 11. LDH 199, B12, folate within normal limits. Reticulocyte count 1.9. Plan: - Will consider IV iron before patient discharge. ? Will start patient on oral iron upon discharge Hyperlipidemia Triglycerides 139, cholesterol 169, LDL 94, HDL 47 ASCVD 56.2%. High intensity statin recommended based on risk Plan: ? Will start patient on atorvastatin 80 Mg p.o. at bedtime once EGD completed and he is able to swallow. Thyroid nodule 4 mm incidentally found on CT soft tissue neck TSH 1.79, free T41.21 Plan: ? For outpatient follow-up Health maintenance: Disposition: Pending EGD Diet: N.p.o. Lines: pIVs GI Prophylaxis: Pantoprazole 40 Mg IV twice daily Thrombo Prophylaxis: Heparin Code status: FULL CODE Plan of care discussed with Attending Dr. Khoury and PGY 2 Dr. Suzie Kelley MD PGY 1 Disclaimer: This note was dictated by speech recognition. Minor errors in load tallier may be present due to voice recognition software. Attending Provider Attestation/Addendum I attest that I was physically present for the evaluation, physical examination, lab and imaging review of the patient with the residents. I discussed the case with the residents and agree with the findings and plans of care as documented above. At bedside today, patient continues to complain of dysphagia and odynophagia. He has not been able to eat. Patient is planned for EGD in the evening with gastroenterology. Has been hypertensive this morning, started on labetalol IV as needed with improvement in blood pressure. Continues to be on atrial flutter, rate controlled with labetalol. We will plan for starting Eliquis after the EGD. Creatinine level improving with IV hydration, we will continue with 80 cc/h. Kt Khoury MD
--- NOTE | 2024-10-10 20:10 | SUR.PHASEI ---
2009 Patient arrived to recovery resting comfortably in [facility], drowsy and responding to verbal prompting, breathing unlabored, vital signs stable, denies pain and nausea, report recevied from Melanie ROBERT
--- NOTE | 2024-10-10 20:45 | SUR.PHASEI ---
2039 Report given to Daylin ROBERT, patient meets discharge criteria from recovery, awake and talking with staff, breathing unlabored, vital signs stable, denies pain, taking small sips of apple juice; tolerating well, denies nausea 2044 Patient transported via gurney to room 353 without incident, patient able to ambulate from gurney to bed with stand by assist, patient resting comfortably in bed with call light in reach when this mortgage underwriter left patients room, daughters arrived to his room prior to this mortgage underwriter leaving patients room.
[2024-10-10] MEDS: HEPARIN SOD INJ 5000 UNIT/ML VIAL SC (21:22)
[2024-10-11] VITALS (7 sets, daily range): BP systolic 126–176; BP diastolic 82–99; PULSE 79–115; RESP 14–97; TEMP 36.2–36.4; O2SAT 95–99
[2024-10-11 06:28] LABS: Basophils # (Auto) 0.1 Thou/mm3 (0.0-0.2); Basophils % (Auto) 1 % (0-2.5); Eosinophils % (Auto) 0 % (0-10); Hemoglobin 10.3 g/dL (13.5-16.0); Immature Granulocytes % (Auto) 0 % (0-0); Immature Granulocytes Auto 0.02 Thou/mm3 (0.00-0.00); Lymphocytes # (Auto) 0.9 Thou/mm3 (1.0-4.8); Lymphocytes % (Auto) 10 % (10-50); Mean Corpuscular HGB Conc 31.2 g/dl (31.0-37.0); Mean Corpuscular Hemoglobin 23.1 pg (25.0-35.0); Mean Corpuscular Volume 74 fL (80-100); Monocytes # (Auto) 0.7 Thou/mm3 (0.0-0.8); Monocytes % (Auto) 8 % (0-12); Neutrophils # (Auto) 7.3 Thou/mm3 (1.8-7.7); Neutrophils % (Auto) 82 % (37-80); Nucleated Red Blood Cell % 0 /100 WBC (0); Platelet Count 228 Thou/mm3 (140-440); RDW Standard Deviation 41.4 fL (35.1-43.9); Red Blood Count 4.46 Miln/mm3 (4.50-5.90)
[2024-10-11 06:57] LABS: Alanine Aminotransferase 8 U/L (10-49); Albumin, Serum 4.1 gm/dL (3.4-4.8); Albumin/Globulin Ratio 1.8 (1.2-2.2); Alkaline Phosphatase 56 U/L (46-116); Anion Gap 10 (7-16); Aspartate Amino Transferase 26 U/L (0-34); BUN/Creatinine Ratio 15 Ratio (12-20); Bilirubin,Total 0.6 mg/dL (0.3-1.2); Blood Urea Nitrogen 19 mg/dL (9-23); Calcium 8.4 mg/dL (8.3-10.6); Calcium (Corrected) 8.4 mg/dL (8.5-10.1); Carbon Dioxide 20.7 mMol/L (20.0-31.0); Chloride 110 mMol/L (98-107); Creatinine (Component) 1.3 mg/dL (0.6-1.3); Estimated Creatinine Clearance 43.6 mL/min (>60); Globulin 2.3 gm/dL (2.3-3.5); Glucose 77 mg/dL (74-106); Magnesium 1.8 mg/dL (1.6-2.6); Osmolality,Calculated 282 (275-295); Phosphorous 2.7 mg/dL (2.4-5.1); Sodium 141 mMol/L (136-145); Total Protein 6.4 gm/dL (5.7-8.2); eGFR 57 See Note
[2024-10-11] MEDS: PANTOPRAZOLE INJ 40 MG VIAL IVP (08:33)
[2024-10-11] MEDS: HEPARIN SOD INJ 5000 UNIT/ML VIAL SC (08:33)
[2024-10-11] MEDS: SODIUM CHLORIDE 0.9% 1000 ML 1,000 ML 80 ML IV (08:36)
[2024-10-11] MEDS: Magnesium Sulfate 2 GM Ivpb 2 GM/50 ML BAG IV (09:28)
[2024-10-11] MEDS: APIXABAN 2.5 MG TABLET 5 MG PO (10:16)
[2024-10-11] MEDS: METOPROLOL SUCCINATE XL 25 MG TABCR PO (10:16)
[2024-10-11] MEDS: LIDOCAINE VISCOUS 2% 15 ML UDC 10 ML PO (10:25)
--- NOTE | 2024-10-11 14:43 | PC.CC ---
Addendum entered by Fide Hernández RN 10/11/24 18:16: [facility] Original Note: pt entered into [facility]
--- NOTE | 2024-10-11 16:26 | ESDS_ITS ---
<Statement entered by Ulises Larsen MD - 10/13/24 18:17> Patient was seen and examined at bedside. Agree on the discharge plan for this patient on this note. - Patient's plan and care discussed with my attending, Dr. Ignacio Larsen MD Internal Medicine PGY-2 Planned Discharge Date 10/11/24 DS: Providers Provider Date of admission: 10/09/24 17:32 Primary care physician: Darrian Cortez PA-C Admitting Provider: Kt Khoury MD Attending Provider on Admission: Kt Khoury MD Consults: 10/09/24 16:13 Consult to Gastroenterology Stat Comment: Consulting Provider: Tino Rahman Attending Provider on DC: Kt Khoury MD Discharging Provider: Jose Armando Kelley MD DS: Diagnosis Problem List Completed Was Problem List Reviewed/Reconciled?: Yes Hospital Course Hospital Course Hospital course: Patient is Chadian-speaking and history facilitated by registered healthcare housekeeper. His daughter was present at bedside Patient is a 74-year-old male with past medical history significant for primary hypertension, previous MT, CAD s/p 1 stent 15 years ago, auq-fenlnvw-labjwpglo diabetes mellitus type 2, GERD and esophageal ulcers presented today with a history of progressively worsening dysphagia. Follows up with his PCP and computational theory scientist Dr. Luis Murphy. Patient will be admitted for workup and management of dysphagia for investigation and hypertensive urgency. For his hypertensive urgency, he was treated with hydralazine 20mg IV x 1 in the ED after which he improved. For his dysphagia and odynophagia he received CT scan of neck and chest. This was followed up by EGD. CT chest significant for lower wall of esophagus mildly thickened. CT soft tissue neck significant for 4 mm right thyroid nodule EGD completed on 10/10/2024 findings include: Esophagitis corrected of esophagus. 1 benign appearing intrinsic moderate stenosis of GI GE junction. Dilatation was performed. 1 benign appearing moderate proximal esophagus stenosis. Dilatation was performed. Biopsies were taken. Follow-up. Recommend Protonix 40 Mg twice daily Patient dysphagia improved after EGD with dilatation. He was able to tolerate a soft diet and will be discharged from Protonix 40 Mg p.o. twice daily. For his atrial flutter, patient was treated with metoprolol 25 Mg p.o. daily and started on apixaban 5 Mg p.o. twice daily for stroke prophylaxis. For his acute kidney injury, he was treated with IV fluids after which his GFR improved. Patient was on oral therapy at baseline and patient is clinically stable for for discharge to home with home health. Discharge diagnoses: 1. Dysphagia?resolved 2. Odynophagia?resolving 3. Proximal and distal esophageal strictures s/p EGD with dilatation 4.GERD 5. Esophageal ulcers 6. Atrial flutter?persistent 7. Acute kidney injury?resolving 8. Iron deficiency anemia 9. Hyperlipidemia 10. Thyroid nodule Discharge plan: ? For your ulcers in your esophagus you have been started on a medication, pantoprazole. Take 1 tablet twice a day. ? For your high cholesterol you have been started on a medication atorvastatin. Take 1 tablet at night. ? Continue to take metformin, 1 tablet twice a day for your diabetes. ? We have started you on a medication metoprolol for your irregular heart rate. Take 1 tablet once a day. -For your anemia we have started you on iron supplements. Take 1 tablet every other day ? Continue taking your home medication lisinopril 20 Mg 1 tablet a day. ? We have discontinued your medication atenolol/chlorthalidone, baclofen, glipizide pantoprazole and metformin. ? We have put a hold on your medication clopidogrel until you see your computational theory scientist. ? Follow-up with GI, Dr. Rahman within 2 weeks of discharge. ? Follow-up with your computational theory scientist within 1 week of discharge ? Follow-up with your primary doctor within 1 week of discharge to get a repeat kidney function test. - Follow-up with your primary doctor to monitor your thyroid nodule. - Follow up with your primary care physician within 1 week of discharge. If you do not have a primary care physician, please follow up with the [facility] Residents clinic ([phone]) ? If you experience any new, worsening or persistent symptoms either call your primary doctor, or dial 911 or present to the emergency department. We are grateful to be able to participate in Mr. Kirby's care. We wish him the best. Plan of care discussed with Attending Dr. Khoury and PGY 2 Dr[address] Suzie Kelley MD PGY 1 Disclaimer: This note was dictated by speech recognition. Minor errors in staff home therapy rn may be present due to voice recognition software. Time Spent with Patient Time attestation: Total time spent providing and/or coordinating discharge services: Time spent: Less than 30 minutes Home Health Home Health Referral Orders: 10/11/24 13:56 Home Health Referral Routine Reason For Exam: Dysphagia Home-Bound The patient must either because of illness or injury, need the aid of supportive devices such as crutches, canes, wheelchairs, and walkers; the use of special transportation; or the assistance of another person in order to leave their place of residence; OR have a condition such that leaving his or her home is medically contraindicated. In addition, the patient also meets the following criteria: patient is normally unable to leave the home and leaving home requires considerable taxing effort. Addendum to Home Health Certification Practitioner's Certification: I certify that the patient has been under my care in the hospital and the care of attending physician (see below). We had a [id number] encounter on (see date below). My clinical findings indicate that the patient is home bound per the above criteria and the Home Health Services noted in these orders are medically necessary. The primary reason for the [id number]-[id number] encounter is related to the fact that the patient requires home health services. Date Certifying Unij-xa-Jupn Physician Encounter: 10/09/24 Physician's Name who will Assume Oversight for Services: Darrian Cortez Physician's Phone No.who will Assume Oversight for Service: DONOR CENTER TECHNICIAN - Community Resources: No PT to Evaluate: No PT to evaluate and provide a treatmnet plan to increase patient's mobility and strength. Wound Care: No IV Therapy: No RN Safety Evaluation: Yes RN to evaluate and create a plan of care that will produce positive outcomes. Palliative Treatment: No Palliative treatment and evaluate the need for hospice. Home Health Aide - Personal Care: Yes Home Health Aide to assist with any ADL's. Exam Vital Signs Temp Pulse Resp BP Pulse Ox O2 Del Method O2 Flow Rate 97.3 F 82 19 163/99 H 97 Room Air 3 10/11/24 16:00 10/11/24 16:00 10/11/24 16:00 10/11/24 16:00 10/11/24 16:00 10/11/24 16:00 10/11/24 16:00 Narrative Exam Constitutional Alert, oriented x 3 and comfortable. Elderly male HEENT Vision grossly intact. Patent nares. Trachea midline. Thyroid nodule palpated on the right Respiratory Chest normal on inspection and clear auscultation bilaterally Cardiovascular S1 and S2 audible, RRR. No murmurs carotid bruit. No gross JVD. Abdominal Soft and non tender to palpation in all quadrants. BS + Genitourinary No bladder tenderness, no flank pain. Normal to palpation Musculoskeletal Extremities tone within normal limits. No LE edema. Neurological CN II - XII grossly intact. Extremity motor and sensation grossly intact. Skin Warm, dry and intact. No apparent lesions. Psychiatric Patient has good affect, is cooperative Discharge Plan Plan Patient Disposition: Home w/HOME HEALTH Care Plan Goals: ? For your ulcers in your esophagus you have been started on a medication, pantoprazole. Take 1 tablet twice a day. ? For your high cholesterol you have been started on a medication atorvastatin. Take 1 tablet at night. ? Continue to take metformin, 1 tablet twice a day for your diabetes. ? We have started you on a medication metoprolol for your irregular heart rate. Take 1 tablet once a day. -For your anemia we have started you on iron supplements. Take 1 tablet every other day ? Continue taking your home medication lisinopril 20 Mg 1 tablet a day. ? We have discontinued your medication atenolol/chlorthalidone, baclofen, glipizide pantoprazole and metformin. ? We have put a hold on your medication clopidogrel until you see your computational theory scientist. ? Follow-up with GI, Dr. Rahman within 2 weeks of discharge. ? Follow-up with your computational theory scientist within 1 week of discharge ? Follow-up with your primary doctor within 1 week of discharge to get a repeat kidney function test. - Follow-up with your primary doctor to monitor your thyroid nodule. - Follow up with your primary care physician within 1 week of discharge. If you do not have a primary care physician, please follow up with the [facility] Residents clinic ([phone]) ? If you experience any new, worsening or persistent symptoms either call your primary doctor, or dial 911 or present to the emergency department. Prescriptions/Referrals Prescriptions/Med Rec: New apixaban 5 mg tablet 5 mg PO BID 30 Days Qty: 60 0RF metoprolol succinate 25 mg Tablet Extended Release 24 Hr 25 mg PO QDAY 30 Days Qty: 30 0RF atorvastatin 40 mg tablet 40 mg PO QPM 30 Days Qty: 30 0RF metformin 500 mg tablet extended release 24 hr 500 mg PO BID 30 Days Qty: 60 0RF pantoprazole 40 mg tablet,delayed release (DR/EC) 40 mg PO BID 30 Days Qty: 60 0RF ferrous sulfate 300 mg (60 mg iron)/5 mL liquid 300 mg PO Q OTHER DAY Qty: 500 0RF Continued lisinopril 20 mg tablet 20 mg PO QDAY 14 Days Qty: 0 0RF Patient Comments: TOME 1 TABLETA POR V A ORAL TODOS LOS D Held clopidogrel [Plavix] 75 mg tablet 75 mg PO QDAY Hold Instructions: until you see your computational theory scientist Discontinued metformin [Glucophage] 500 MG tablet 500 mg PO BIDAC Qty: 0 clopidogrel [Plavix] 75 MG tablet 75 mg PO QDAY Qty: 0 simvastatin [Zocor] 40 MG tablet 40 mg PO HS Qty: 0 Atenolol/Chlorthalidone * (TENORETIC 50/25 *) 1 TAB tablet 1 tab PO QAM Qty: 0 baclofen 10 MG tablet 1 - 2 tab PO TID Qty: 0 lisinopril 40 MG tablet 40 ml PO QDAY Qty: 0 pantoprazole [Protonix] 40 MG tablet,delayed release (DR/EC) 40 mg PO QDAY Qty: 0 Patient Comments: TO SUPPRESS GASTRIC SECRETIONS glipizide 5 mg tablet 5 mg PO BID Patient Comments: TOME 1 TABLETA POR V A ORAL DOS VECES AL D A FOR 90 DAYS glipizide 5 mg tablet 5 mg PO BID Patient Comments: TOME 1 TABLETA POR V A ORAL DOS VECES AL D A FOR 90 DAYS Rx Instructions: 5 mg orally; simvastatin [Zocor] 40 mg tablet 40 mg PO QPM Referrals: Tino Rahman MD [Physician] - Darrian Cortez PA-C [Primary Care Provider] - Patient/Caregiver Discharge Instructions Education Materials: ED PEPTIC ULCER vs GASTRITIS Print Language: Chadian Stand Alone Forms: Kenisha Award Info., Patient Portal Info Letter Discharge Order Discharge Orders: Discharge (Routine); Ordered 10/11/24 Ordered By: Jose Armando Kelley Quality Discharge Quality Measures VTE prophylaxis MD Attestestation MD Attestation I attest that I was physically present for the evaluation, physical examination, lab and imaging review of the patient with the residents. I discussed the case with the residents and agree with the findings and plans of care as documented above. Kt Khoury MD
--- NOTE | 2024-10-12 12:37 | PC.CC ---
Addendum entered by Galina Álvarez RN 10/12/24 15:14: Stephanie received insurance auth and provided start of care date 10/15/24 Addendum entered by Galina Álvarez RN 10/12/24 13:42: Stephanie accepted and booked. Pending insurance auth and start of care date. Addendum entered by Galina Álvarez RN 10/12/24 12:42: [facility] declined referral through [facility], reached out to them for reason, per Domi pt's insurance is not contracted with them. Referral sent out to other agencies Original Note: Reached out to [facility] for start of care date, Per Domi with [facility], patient declined our services said they will follow up with PCP
== END 2024-10-11 16:30 | disposition home health service (06) | DRG 392 ==
LOC: SERX 16:15 → SERHOLD 19:05 → S3NX 21:06
PROVIDERS: Nurse Practitioner Primary Care; Specialist; Admitting Provider Student in an Organized Health Care Education/Training Program; Emergency Provider Emergency Medicine; PCP Physician Assistant; Visit Provider Student in an Organized Health Care Education/Training Program
PROC: 0D758DZ Dilation of Esophagus with Intraluminal Device, Via Natural or Artificial Opening Endoscopic (ICD-10-PCS; CPT 43239; principal; 2024-10-10 21:45)
DX: K22.2 Esophageal obstruction (principal); I48.92 Unspecified atrial flutter; N17.9 Acute kidney failure, unspecified; K22.10 Ulcer of esophagus without bleeding; I10 Essential (primary) hypertension; I25.2 Old myocardial infarction; E11.9 Type 2 diabetes mellitus without complications; Z79.84 Long term (current) use of oral hypoglycemic drugs; I25.10 Atherosclerotic heart disease of native coronary artery without angina pectoris; K21.9 Gastro-esophageal reflux disease without esophagitis; E04.1 Nontoxic single thyroid nodule; I16.0 Hypertensive urgency; F17.210 Nicotine dependence, cigarettes, uncomplicated; D50.9 Iron deficiency anemia, unspecified; E78.5 Hyperlipidemia, unspecified
CPT/HCPCS: 36415; 70491; 71046; 71260; 80053; 80061; 82607; 82728; 82746; 83036; 83540; 83550; 83615; 83735; 83880; 84100; 84439; 84443; 84484; 85025; 85046; 85610; 85652; 85730; 86140; 93005; 93225; 96361; 96365; 96366; 99285; A4649; J0360; J1200; J1644; J2250; J2270; J2470; J3010; J3475; J3480; J3490; J7030; Q9967; A9270; J1920

== ENCOUNTER 2024-11-22 04:05 | Emergency (ER) | payer OTHER, MEDICAID, SELFPAY ==
[2024-11-22 04:13] VITALS: BP 222/114; PULSE 82; RESP 22; TEMP 36.4; O2SAT 100
[2024-11-22 04:22] VITALS: PULSE 82; O2SAT 100; BMI 26.6
--- NOTE | 2024-11-22 04:30 | PD.EDDENTL ---
ED Dental RME/HPI General Chief complaint: Dental/Oral/Throat Stated complaint: THROAT PAIN Time Seen by Provider: 11/22/24 04:08 Arrival date/time: 11/22/24 04:05 RME / HPI RME / HPI Narrative: Dr. Masterson?s Main ED Evaluation: 74yo male with a history of DM, HTN, HLD BIBA from home presents to the ED for complaints of chills and sweating x yesterday. Patient reports an associated sore throat. Patient denies any fever, N/V/D, dysuria, chest pain, cough, shortness of breath or any other associated symptoms. Patient has been compliant with his antihypertensives. NKA. Related Data Home Medications ?Medication ?Instructions ?Recorded ?Confirmed clopidogrel 75 mg tablet (Plavix) 75 mg PO QDAY 10/11/24 10/11/24 Held on 10/11/24. Instructions: until you see your housekeeper caregiver Previous Rx's ?Medication ?Instructions ?Recorded ferrous sulfate 300 mg (60 mg 300 mg (5 mL) PO Q OTHER DAY #500 10/11/24 iron)/5 mL oral liquid mL lisinopril 20 mg tablet 20 mg PO QDAY 14 days #0 tabs 10/11/24 Allergies Allergy/AdvReac Type Severity Reaction Status Date / Time No Known Allergies Allergy Verified 10/09/24 10:45 Review of Systems Review of Systems Systems Reviewed: All systems reviewed, normal except as documented Past Medical History Past Medical History NEUROLOGIC: Negative Seizures CARDIAC: Positive Myocardial Infarction, Hypercholesterolemia and Hypertension; Negative Cardiac Disorders or Congestive Heart Failure RESPIRATORY: Negative Chronic Obstructive Pulmonary Disease (COPD) or Asthma GENITOURINARY: Negative Renal Disease ENDOCRINE: Positive Diabetes Mellitus Type 2; Negative Diabetes Mellitus Type 1 HEMATOLOGIC: Negative Sickle Cell Disease OTHER HISTORY: Positive Blood Transfusions and Anesthesia Reactions (anxiety/resistant to anesthesia); Negative Blood Transfusion Reaction Surgical History SURGICAL: Positive Coronary Stent Social History SMOKING STATUS: Never smoker ED Exam Narrative Physical exam: GEN. APPEARANCE: The patient is alert awake oriented X-3 in no distress, lying down comfortably, does not look ill/toxic. Patient has good eye contact. Patient is cooperative. VITALS: All vitals were reviewed and the pulse ox is 100% on room air which is normal according to my interpretation. HEENT: Normocephalic, atraumatic. Pupils are equal and reactive. Oral mucosa is moist. Patent Nares NECK: Supple, nontender, no thyromegaly, no meningismus, no JVD CHEST: Symmetrical, atraumatic, and with equal expansion , Nontender on palpation no deformity and no crepitus. CARDIOVASCULAR: Heart regular rhythm no murmur or gallop rub or extra beats. LUNGS: Clear to auscultation bilaterally with symmetrical chest rise. No laboring tachypnea or wheezing. No intercostal subcostal retraction. No rales and no rhonchi. ABDOMEN: Soft, flat, nontender to palpation, no guarding or rebound tenderness. There are no abnormal masses palpated. Active and normal bowel sounds. EXTREMITIES: Nontender. No edema. No cyanosis. Patient is able to move all 4 extremities well, with full ROM and good CSM. SKIN: Warm and dry, no jaundice or rashes noted. NEURO: Patient is THOMPSON x 4, Cranial nerves II through XII grossly intact. There is no focal neurologic deficits noted. GCS is 15, PNS and COMMAND CENTER ANALYST appear grossly intact. PSYCHIATRIC: Patient is in normal mood and affect. Course Quality Measures none Orders Category Date Time Status Bedside COVID-19 Antigen Test NOW Care 11/22/24 04:59 Active Bedside Influenza A&B Antigen Test NOW Care 11/22/24 04:59 Completed Glucose [Bedside Blood Glucose] NOW Care 11/22/24 06:36 Active Strep A Rapid Stat Lab 11/22/24 05:17 Completed Ketorolac Inj [Toradol Inj] Med 11/22/24 05:00 Discontinued 15 mg IM X1 ONE cloNIDine HCL [Catapres] Med 11/22/24 06:14 Discontinued 0.3 mg PO X1 ONE Vital Signs Vital signs: Vital Signs Temperature 97.5 F 11/22/24 04:13 Pulse Rate 82 11/22/24 04:13 Respiratory Rate 22 H 11/22/24 04:13 Blood Pressure 222/114 H 11/22/24 04:13 Pulse Oximetry (%) 100 11/22/24 04:13 Oxygen Delivery Method Room Air 11/22/24 04:13 Dental / Oral MDM Narrative MDM Narrative:: Scribe Attestation: 11/22/24 - Neena Delarosa am scribing for and in the presence of Dr. Masterson. Patient is a 74-year-old male is in emerged from with concerns for sore throat, body aches and chills. Vital signs and exam as above. Concern for viral syndrome, strep throat. Patient with any cough, no adventitious breath sounds, not respiratory distress, less likely pneumonia. Patient GCS 15, symmetric bilateral upper extremity pulses, lower extremity pulses warm and well-perfused abdomen soft lax and nontender, no chest pain, and less likely ACS arrhythmia electrolyte abnormality intra-abdominal pathology meningitis encephalitis. Ordered swabs. Offered medication for symptom relief At this time accepted send transition care to Dr. Hong. Patient is pending results of his workup and safe dispo Patient data External records reviewed:: [facility] previous records (Per chart review, patient was admitted here on 10/09/24 for esophageal obstruction.) and EMS form Clinical information provided by:: patient Social determinants that could affect healthcare access:: none Patient has the following chronic illnesses:: DM, HTN, HLD How is presenting disease/condition affected by chronic disease/condition?: uneffected by Evaluation data The following diagnostics were reviewed and interpreted by me:: lab results Lab and/or radiology exams considered but not ordered:: none Interpretation Summary: COVID/Influenza negative. Medications / Prescriptions Medications or Prescriptions considered but not ordered:: none Medication administrations:: Medication Administration History Discontinued Medications Clonidine (Clonidine Hcl 0.1 Mg Tablet) 0.3 mg PO X1 ONE Stop: 11/22/24 06:15 Last Admin: 11/22/24 06:33 Dose: Not Given Documented By: CHARLOTTE Non-Admin Reason: Discontinued Ketorolac Tromethamine (Ketorolac Inj 60 Mg/2 Ml Vial) 15 mg IM X1 ONE Stop: 11/22/24 05:01 Last Admin: 11/22/24 05:20 Dose: 15 mg Documented By: CHARLOTTE see above Consultations Consultation(s) initiated? (list below): No Diagnosis Dental Differential Diagnosis: other (URI, viral syndrome, COVID, Influenza, Strep) Most likely diagnosis given after review of the tests above:: dx pending at signout Admission Indicated Admission indicated?: not indicated Admission Request Was there a request for admission?: No Disposition Plan Disposition Plan: other (specify) (Signed out to Dr. Hong at 0600 pending strep swab.) Discharge Plan Prescriptions/Referrals Prescriptions/Med Rec: No Action lisinopril 20 mg tablet 20 mg PO QDAY 14 Days Qty: 0 0RF Patient Comments: TOME 1 TABLETA POR V A ORAL TODOS LOS D clopidogrel [Plavix] 75 mg tablet 75 mg PO QDAY ferrous sulfate 300 mg (60 mg iron)/5 mL liquid 300 mg PO Q OTHER DAY Qty: 500 0RF Referrals: Darrian Cortez PA-C [Primary Care Provider] - In 1 week Problem List Clinical Impression: Sore throat Patient/Caregiver Discharge Instructions Print Language: Wallisian
[2024-11-22] MEDS: KETOROLAC INJ 60 MG/2 ML VIAL 15 MG IM (05:20)
[2024-11-22 06:18] LABS: Strep A Rapid Negative (Negative)
[2024-11-22 06:19] VITALS: BP 175/92; PULSE 83; RESP 17; O2SAT 99
--- NOTE | 2024-11-22 06:38 | EDNOTE_ITS ---
Emergency Room Addendum <Savi Gonzalez - Last Filed: 11/22/24 07:07> Addendum Narrative: I took over the care from Dr. Masterson, the previous shift physician at 0600 hours on 11/22/2024.? See previous notes for complete H & P and ED course. I reviewed all diagnostic test results. Influenza A, B, and COVID were negative. At 0648 hours blood glucose was 86. Diagnoses include hypoglycemia Treatment here included Significant improvement Based on my best medical judgment, made decision no further evaluation or treatment indicated at this time.? Patient understands and agrees to the discharge instructions customized and printed, see below. Reinaldo Hong MD <Reinaldo Hong MD - Last Filed: 11/22/24 07:23> Addendum Narrative: I took over the care from Dr. Masterson, previous shift physician at 0600 on 11/22/2024.? See previous notes for complete H & P and ED course. Diagnoses include hypoglycemia. Treatment here included snacks and juice. Significant improvement noted. Recommended decreasing home glipizide by 50% until cleared by his doctor. Based on my best medical judgment, made decision no further evaluation or treatment indicated at this time.? Patient understands and agrees to the discharge instructions customized and printed, see below. Discharge Instructions from Dr. Hong printed for you: 1. The swabs for COVID and influenza and strep throat were negative today. 2. You were treated for low sugar level. 3. Take 1/2 glipizide pill, your diabetic medication, until cleared by a doctor taking care of you. 4. See your private doctor on 11/23/2024 for recheck and further care. Ask to help you stay healthy, with good management of your diabetes and high BP and with regular physical exam and health maintenance. 5. Seek immediate medical care with worsening or with any concerns. Instrucciones de lilian de magui Hong, impresas para usted: 1. Las pruebas de COVID-19, influenza y faringitis estreptoc?cica dieron negativo hoy. 2. Recibi? tratamiento para niveles bajos de az?car. 3. [place] media pastilla de glipizida, chen medicamento para la diabetes, hasta que chen m?dico le d? el lilian. 4. Consulte con chen m?dico particular el 23/11/2024 para eden nueva revisi?n y atenci?n adicional. Solicite ayuda para mantenerse saludable, con un buen control de chen diabetes y presi?n arterial lilian, y con ex?menes f?sicos regulares y mantenimiento de la venessa. 5. Busque atenci?n m?dica inmediata si presenta un empeoramiento o si tiene alguna inquietud. Reinaldo Hong MD
== END 2024-11-22 07:10 | disposition home or self-care (01) ==
PROVIDERS: Emergency Medicine; Emergency Provider Emergency Medicine; PCP Physician Assistant
DX: J02.9 Acute pharyngitis, unspecified (principal); E11.649 Type 2 diabetes mellitus with hypoglycemia without coma; I48.91 Unspecified atrial fibrillation; I49.3 Ventricular premature depolarization; I10 Essential (primary) hypertension; E78.00 Pure hypercholesterolemia, unspecified; I25.2 Old myocardial infarction; Z79.84 Long term (current) use of oral hypoglycemic drugs; Z79.02 Long term (current) use of antithrombotics/antiplatelets; Z95.5 Presence of coronary angioplasty implant and graft
CPT/HCPCS: 87400; 87651; 87811; 96372; 99283; J1885